=== PATIENT | female | born 1950 | race Caucasian/White ===

== ENCOUNTER 2016-09-15 18:30 | Emergency (ER) | payer MEDICARE, SELFPAY ==
[2016-09-15 18:48] VITALS: BP 167/89
[2016-09-15] MEDS ORDERED: Ondansetron 4 MG Tab.DIS PO ONE (19:11)
[2016-09-15] MEDS ORDERED: Dextrose 5%-0.9% NaCl with KCl 500 ML IV SCH (19:15)
--- NOTE | 2016-09-15 20:11 | EDM.PDOC ---
ED HPI GENERAL MEDICAL PROBLEM - General Chief Complaint: General Stated Complaint: abdominal pain Time Seen by Provider: 09/15/16 18:55 Source of Information: Reports: Patient History Limitations: Reports: No limitations - History of Present Illness INITIAL COMMENTS - FREE TEXT/NARRATIVE: This is a 66yo F here for complaints of severe abdominal pain. Patient states the pain was like the times she had gallbladder issues but she no longer has a gallbladder. Patient denies any chest pain, no sob. No fever but does complain of chills. Patient states the pain started 1 hour ago and resolved light a light switch before arriving in the ER. Patient does have a history of chronic diarrhea and did take some immodium today. Onset: sudden Duration: Minutes:, Resolved prior to arrival Location: Reports: abdomen Quality: Reports: Ache Severity: severe Improves with: Reports: None Worsens with: Reports: None Associated Symptoms: Reports: denies other symptoms - Related Data Allergies Allergy/AdvReac Type Severity Reaction Status Date / Time Penicillins Allergy Anaphylactic Verified 09/15/16 18:46 Shock Past Medical History Psychiatric History: Reports: Anxiety - Past Surgical History GI Surgical History: Reports: Cholecystectomy, Colonoscopy, Small bowel ED ROS GENERAL - Review of Systems Review Of Systems: ROS reveals no pertinent complaints other than HPI. ED EXAM, GENERAL - Physical Exam Exam: See Below Exam Limited By: No limitations General Appearance: alert, WD/WN, no apparent distress Eye Exam: bilateral eye: EOMI, PERRL Ears: normal external exam Nose: normal inspection Throat/Mouth: Normal inspection Head: atraumatic, normocephalic Neck: normal inspection, supple, non-tender Respiratory/Chest: no respiratory distress, lungs clear, normal breath sounds Cardiovascular: normal peripheral pulses, regular rate, rhythm, no edema Peripheral Pulses: 2+: dorsalis pedis (L), dorsalis pedis (R) GI/Abdominal: normal bowel sounds, soft, non tender, no organomegaly, no distention, no abnormal bruit, no mass Extremities: normal inspection Neurological: alert, oriented, CN II-XII intact Course - Vital Signs Last Recorded V/S: Last Vital Signs Temp 37.8 C 09/15/16 18:46 Pulse 107 H 09/15/16 18:46 Resp 12 09/15/16 18:46 BP 167/89 H 09/15/16 18:46 Pulse Ox 93 L 09/15/16 18:46 - Orders/Labs/Meds Orders: Active Orders 24 hr Category Date Time Status Chest Abdomen Pelvis wo Cont [CT] Stat Exams 09/15/16 18:37 Taken Dextrose 5%-0.9% NaCl with KCl [D5 NS with 20 mEq KCl] Med 09/15/16 19:15 Active 500 ml IV ASDIRECTED Medication Orders Potassium Chloride/Dextrose/Sod Cl (D5 Ns With 20 Meq Kcl) 500 mls @ 999 mls/ hr IV ASDIRECTED PANFILO Last Admin: 09/15/16 19:34 Dose: 999 mls/hr Labs: Laboratory Tests 09/15/16 09/15/16 09/15/16 Range/Units 19:00 19:00 19:00 WBC 9.9 (4.0-11.0) K/uL RBC 4.84 (3.80-5.80) M/uL Hgb 14.4 (11.5-16.5) g/dL Hct 42.0 (37.0-47.0) % MCV 87 (76-96) fL MCH 29.8 (27.0-32.0) pg MCHC 34.3 (31.0-35.0) g/dL RDW 12.8 (11.0-16.0) % Plt Count 225 (150-500) K/uL MPV 9.5 (6.0-10.0) fL Neut % (Auto) 90.0 H (45.0-70.0) % Lymph % (Auto) 4.9 L (20.0-40.0) % [place] % (Auto) 4.7 (3.0-10.0) % Eos % (Auto) 0.2 L (1.0-5.0) % Baso % (Auto) 0.2 (0.0-0.5) % Neut # 8.91 H (2.00-7.50) K/uL Lymph # 0.49 L (1.50-4.00) K/uL [place] # 0.47 (0.20-0.80) K/uL Eos # 0.02 L (0.04-0.40) K/uL Baso # 0.02 (0.02-0.10) K/uL Sodium 139 (136-145) mmol/L Potassium 4.0 (3.5-5.1) mmol/L Chloride 102 (98-107) mmol/L Carbon Dioxide 26.9 (21.0-32.0) mmol/L Anion Gap 14.1 (5.0-15.0) mmol/L BUN 20 (8-26) mg/dL Creatinine 1.05 H (0.55-1.02) mg/dL Est Cr Clr Drug Dosing TNP Estimated GFR (MDRD) 53 L (>60) MLS/MIN BUN/Creatinine Ratio 19.0 (6-25) Glucose 150 H D (74-100) mg/dL Hemoglobin A1c (4.5-6.2) % Calcium 8.9 (8.5-10.1) mg/dL Total Bilirubin 0.7 (0.0-1.0) mg/dL AST 104 H (15-37) U/L ALT 84 H (12-78) U/L Alkaline Phosphatase 90 (46-116) U/L Total Protein 7.6 (6.4-8.2) g/dL Albumin 3.9 (3.4-5.0) g/dL Globulin 3.7 (2.2-4.2) g/dL Albumin/Globulin Ratio 1.1 (0.8-2.0) Lipase (73-393) U/L TSH, Ultra Sensitive 0.177 L D (0.358-3.740) uIU/mL 09/15/16 09/15/16 Range/Units 19:00 19:00 WBC (4.0-11.0) K/uL RBC (3.80-5.80) M/uL Hgb (11.5-16.5) g/dL Hct (37.0-47.0) % MCV (76-96) fL MCH (27.0-32.0) pg MCHC (31.0-35.0) g/dL RDW (11.0-16.0) % Plt Count (150-500) K/uL MPV (6.0-10.0) fL Neut % (Auto) (45.0-70.0) % Lymph % (Auto) (20.0-40.0) % [place] % (Auto) (3.0-10.0) % Eos % (Auto) (1.0-5.0) % Baso % (Auto) (0.0-0.5) % Neut # (2.00-7.50) K/uL Lymph # (1.50-4.00) K/uL [place] # (0.20-0.80) K/uL Eos # (0.04-0.40) K/uL Baso # (0.02-0.10) K/uL Sodium (136-145) mmol/L Potassium (3.5-5.1) mmol/L Chloride (98-107) mmol/L Carbon Dioxide (21.0-32.0) mmol/L Anion Gap (5.0-15.0) mmol/L BUN (8-26) mg/dL Creatinine (0.55-1.02) mg/dL Est Cr Clr Drug Dosing Estimated GFR (MDRD) (>60) MLS/MIN BUN/Creatinine Ratio (6-25) Glucose (74-100) mg/dL Hemoglobin A1c 5.2 (4.5-6.2) % Calcium (8.5-10.1) mg/dL Total Bilirubin (0.0-1.0) mg/dL AST (15-37) U/L ALT (12-78) U/L Alkaline Phosphatase (46-116) U/L Total Protein (6.4-8.2) g/dL Albumin (3.4-5.0) g/dL Globulin (2.2-4.2) g/dL Albumin/Globulin Ratio (0.8-2.0) Lipase 99 (73-393) U/L TSH, Ultra Sensitive (0.358-3.740) uIU/mL Meds: Medications Generic Name Dose Route Start Last Admin Trade Name Freq PRN Reason Stop Dose Admin Potassium Chloride/Dextrose/Sod Cl 500 mls @ 999 mls/hr 09/15/16 19:15 19:34 D5 Ns With 20 Meq Kcl IV 999 mls/hr ASDIRECTED PANFILO Administration Discontinued Medications Generic Name Dose Route Start Last Admin Trade Name Freq PRN Reason Stop Dose Admin Ondansetron HCl 4 mg 09/15/16 19:11 09/15/16 19:34 Zofran Odt PO 09/15/16 19:12 4 mg ONETIME ONE Administration Departure - Departure Time of Disposition: 20:40 Disposition: Home, Self-Care 01 Condition: good Clinical Impression: Biliary pain, Colitis Instructions: Biliary Colic, Colitis Referrals: PCP,None [Primary Care Provider] - Forms: ED Department Discharge Additional Instructions: Follow-up as needed in the clinic or the ER. - Problem List Review Problem List Initiated/Reviewed/Updated: Yes - My Orders Last 24 Hours: My Active Orders 09/15/16 18:37 Chest Abdomen Pelvis wo Cont [CT] Stat 09/15/16 19:15 Dextrose 5%-0.9% NaCl with KCl [D5 NS with 20 mEq KCl] 500 ml IV ASDIRECTED - Assessment/Plan Last 24 Hours: My Active Orders 09/15/16 18:37 Chest Abdomen Pelvis wo Cont [CT] Stat 09/15/16 19:15 Dextrose 5%-0.9% NaCl with KCl [D5 NS with 20 mEq KCl] 500 ml IV ASDIRECTED Plan: Discussed with patient in length regarding biliary concerns, colitis and treatments. Discussed likely biliary stone or sludge due to the dramatic increase in pain and dramatic cessation of pain from likely clearance of the biliary duct. Discussed colitis and patient states she has had that for a long time and was treated in the past but refuses to continue taking colitis meds. Patient states she will continue to monitor symptoms closely and return to ER or clinic as discussed. Patient understands risks of not following up. Counseled on close monitoring of abdominal pain, BM and fluids.
--- NOTE | 2016-09-18 07:52 | CT ---
DATE OF SERVICE: 09/15/16 CLINICAL DATA: abdominal pain UNENHANCED CHEST CT: Multislice acquisition through the chest without IV contrast was performed. No priors. There are minimal atelectatic changes involving both lung bases. There is a linear density in the left lung base consistent with linear atelectasis or fibrosis. The lung bases are otherwise clear. There is a small hiatal hernia. No pleural effusions. No pneumothorax. No aortic aneurysm or dissection. No hilar or mediastinal adenopathy. The heart size is normal. No pericardial effusion. There are coronary artery calcifications. IMPRESSION: No acute abnormalities. UNENHANCED ABDOMEN AND PELVIC CT: Multislice acquisition through the abdomen and pelvis without IV or oral contrast was performed. No priors. There is a small hiatal hernia. The unenhanced liver appears normal. The gallbladder is absent and there are surgical clips in the gallbladder fossa. The spleen appears normal. The pancreas appears normal. The right and left adrenals appear normal. There is atrophy of the left kidney with renal cortical scarring on the left. The right kidney appears normal. No nephrocalcinosis or nephrolithiasis. No hydronephrosis or hydroureter. The bladder is partially fluid-filled and appears normal. There is a 3.5 cm partially calcified contour-deforming mass within the posterior uterine segment consistent in appearance with a uterine leiomyoma. The appendix is not dilated. No evidence of appendicitis. There is apparent mild mural thickening throughout the transverse, descending, and sigmoid colon. This is probably related to nondistension. Colitis should be considered. No free air. No free fluid. No dilated loops of bowel. No adenopathy. No aortic aneurysm. There is a small umbilical hernia containing fat. [id number] [facility]
== END 2016-09-15 19:15 | disposition home or self-care (01) ==
LOC: LB.ED 18:30
DX: K52.9 Noninfective gastroenteritis and colitis, unspecified (principal); K83.9 Disease of biliary tract, unspecified; F41.9 Anxiety disorder, unspecified; Z90.49 Acquired absence of other specified parts of digestive tract; Z88.0 Allergy status to penicillin
CPT/HCPCS: 36415; 71250; 74176; 80053; 83036; 83690; 84443; 85025; 99283; 99284; A0425; A0429; A9270; J3480

== ENCOUNTER → 2019-07-01 | Outpatient (CLI) | payer MEDICARE, MEDICAID | LOC: LB.CLINIC 11:58 | PROVIDERS: ATTEND Family Medicine | DX: R31.9 Hematuria, unspecified (principal) | CPT/HCPCS: 81001 ==

== ENCOUNTER 2020-06-18 18:25 | Emergency (ER) | payer MEDICARE, OTHER ==
[2020-06-18] MEDS: Sodium Chloride 0.9% 1,000 ML IV SCH (19:28)
[2020-06-18] MEDS: Ketorolac 30 MG/ML SDV IVPUSH ONE (19:33)
[2020-06-18] MEDS ORDERED: Sulfamethoxazole/Trimethoprim 800-160 MG Tab ONE (20:00)
[2020-06-18] MEDS ORDERED: Phenazopyridine 100 MG Tab ONE (20:00)
--- NOTE | 2020-06-18 20:18 | EDM.PDOC ---
ED HPI GENERAL MEDICAL PROBLEM - General Chief Complaint: Headache Stated Complaint: headache/fever Time Seen by Provider: 06/18/20 18:30 Source of Information: Reports: Patient History Limitations: Reports: No Limitations - History of Present Illness INITIAL COMMENTS - FREE TEXT/NARRATIVE: Patient is a 70 y/o female who presents with fever and lower abdominal pain x 2 days. she had called last night and described to nurse constipation symptoms and was advised to increase fiber and take GasX. Patient has a bowel movement this morning and felt a lot better, but the pain came back after drinking diet 7Up. she slept most of the day and symptoms worsened. No nausea, vomiting, diarrhea, no melena, no bloody stools, no dysuria, no back pain, no exposure to anyone testing positive for COVID. - Related Data Allergies Allergy/AdvReac Type Severity Reaction Status Date / Time Penicillins Allergy Anaphylactic Verified 09/15/16 18:46 Shock Past Medical History Psychiatric History: Reports: Anxiety - Past Surgical History GI Surgical History: Reports: Cholecystectomy, Colonoscopy, Small Bowel ED ROS GENERAL - Review of Systems Review Of Systems: See Below Constitutional: Reports: Fever, Fatigue HEENT: Reports: No Symptoms Respiratory: Reports: No Symptoms Cardiovascular: Reports: No Symptoms Endocrine: Reports: No Symptoms GI/Abdominal: Reports: Abdominal Pain : Reports: No Symptoms Musculoskeletal: Reports: No Symptoms Skin: Reports: No Symptoms Neurological: Reports: No Symptoms ED EXAM, RENAL/ - Physical Exam Exam: See Below Exam Limited By: No Limitations General Appearance: Alert, No Apparent Distress Head: Atraumatic, Normocephalic Neck: Normal Inspection, Supple Respiratory/Chest: No Respiratory Distress, Lungs Clear, Normal Breath Sounds, No Accessory Muscle Use, Chest Non-Tender Cardiovascular: Normal Peripheral Pulses, Regular Rate, Rhythm, No Edema, No Murmur GI/Abdominal: Normal Bowel Sounds, Soft, Non-Tender, No Distention Extremities: Normal Inspection, Normal Range of Motion Neurological: Alert, Oriented Skin Exam: Warm, Dry, Other (skin appears sunken in and dry) Lymphatic: No Adenopathy Course - Vital Signs Text/Narrative:: labs revealed UTI. 1 L NS bolus and toradol given. Gave pyridium and bactrim in the ED and gave scripts for bactrim DS PO BID x 5 days. urine culture ordered. - Orders/Labs/Meds Orders: Active Orders 24 hr Category Date Time Status CULTURE URINE [RM] Stat Lab 06/18/20 19:25 Received Labs: Laboratory Tests 06/18/20 06/18/20 06/18/20 Range/Units 18:32 19:25 19:25 WBC 16.5 H D (4.0-11.0) K/uL RBC 4.75 (3.80-5.80) M/uL Hgb 14.6 (11.5-16.5) g/dL Hct 43.2 (37.0-47.0) % MCV 91 (76-96) fL MCH 30.7 (27.0-32.0) pg MCHC 33.8 (31.0-35.0) g/dL RDW 12.9 (11.0-16.0) % Plt Count 197 (150-500) K/uL MPV 9.3 (6.0-10.0) fL Neut % (Auto) 80.9 H (45.0-70.0) % Lymph % (Auto) 9.4 L (20.0-40.0) % [place] % (Auto) 9.4 (3.0-10.0) % Eos % (Auto) 0.1 L (1.0-5.0) % Baso % (Auto) 0.2 (0.0-0.5) % Neut # (Auto) 13.36 H (2.00-7.50) K/uL Lymph # (Auto) 1.56 (1.50-4.00) K/uL [place] # (Auto) 1.56 H (0.20-0.80) K/uL Eos # (Auto) 0.02 L (0.04-0.40) K/uL Baso # (Auto) 0.04 (0.02-0.10) K/uL Sodium (136-145) mmol/L Potassium (3.5-5.1) mmol/L Chloride (98-107) mmol/L Carbon Dioxide (21.0-32.0) mmol/L Anion Gap (5.0-15.0) mmol/L BUN (8-26) mg/dL Creatinine (0.55-1.02) mg/dL Est Cr Clr Drug Dosing Estimated GFR (MDRD) (>60) MLS/MIN BUN/Creatinine Ratio (6-25) Glucose (74-100) mg/dL Calcium (8.5-10.1) mg/dL Total Bilirubin (0.0-1.0) mg/dL AST (15-37) U/L ALT (12-78) U/L Alkaline Phosphatase (46-116) U/L Total Protein (6.4-8.2) g/dL Albumin (3.4-5.0) g/dL Globulin (2.2-4.2) g/dL Albumin/Globulin Ratio (0.8-2.0) Urine Color Yellow Urine Appearance Slightly cloudy (CLEAR) Urine pH 5.5 (5.0-8.0) Ur Specific [place] >= 1.030 (1.003-1.030) Urine Protein >=300 H (NEGATIVE) mg/dL Urine Glucose (UA) Negative (NEGATIVE) mg/dL Urine Ketones 40 H (NEGATIVE) mg/dL Urine Occult Blood Moderate H (NEGATIVE) Urine Nitrite Negative (NEGATIVE) Urine Bilirubin Small H (NEGATIVE) Urine Urobilinogen 0.2 (0.2-1.0) E.U./dL Ur Leukocyte Esterase Small H (NEGATIVE) Urine RBC 5-10 H /HPF Urine WBC 20-30 H /HPF Ur Squamous Epith Cells Many /HPF Urine Bacteria Few /HPF Urine Mucus Moderate /HPF SARS CoV-2 RNA Rapid MAHIN Negative 06/18/20 Range/Units 19:25 WBC (4.0-11.0) K/uL RBC (3.80-5.80) M/uL Hgb (11.5-16.5) g/dL Hct (37.0-47.0) % MCV (76-96) fL MCH (27.0-32.0) pg MCHC (31.0-35.0) g/dL RDW (11.0-16.0) % Plt Count (150-500) K/uL MPV (6.0-10.0) fL Neut % (Auto) (45.0-70.0) % Lymph % (Auto) (20.0-40.0) % [place] % (Auto) (3.0-10.0) % Eos % (Auto) (1.0-5.0) % Baso % (Auto) (0.0-0.5) % Neut # (Auto) (2.00-7.50) K/uL Lymph # (Auto) (1.50-4.00) K/uL [place] # (Auto) (0.20-0.80) K/uL Eos # (Auto) (0.04-0.40) K/uL Baso # (Auto) (0.02-0.10) K/uL Sodium 134 L (136-145) mmol/L Potassium 3.7 (3.5-5.1) mmol/L Chloride 97 L (98-107) mmol/L Carbon Dioxide 27.1 (21.0-32.0) mmol/L Anion Gap 13.6 (5.0-15.0) mmol/L BUN 10 D (8-26) mg/dL Creatinine 0.86 (0.55-1.02) mg/dL Est Cr Clr Drug Dosing TNP Estimated GFR (MDRD) > 60 (>60) MLS/MIN BUN/Creatinine Ratio 11.6 (6-25) Glucose 174 H (74-100) mg/dL Calcium 9.2 (8.5-10.1) mg/dL Total Bilirubin 0.9 (0.0-1.0) mg/dL AST 19 (15-37) U/L ALT 34 (12-78) U/L Alkaline Phosphatase 73 (46-116) U/L Total Protein 8.0 (6.4-8.2) g/dL Albumin 3.5 (3.4-5.0) g/dL Globulin 4.5 H (2.2-4.2) g/dL Albumin/Globulin Ratio 0.8 (0.8-2.0) Urine Color Urine Appearance (CLEAR) Urine pH (5.0-8.0) Ur Specific [place] (1.003-1.030) Urine Protein (NEGATIVE) mg/dL Urine Glucose (UA) (NEGATIVE) mg/dL Urine Ketones (NEGATIVE) mg/dL Urine Occult Blood (NEGATIVE) Urine Nitrite (NEGATIVE) Urine Bilirubin (NEGATIVE) Urine Urobilinogen (0.2-1.0) E.U./dL Ur Leukocyte Esterase (NEGATIVE) Urine RBC /HPF Urine WBC /HPF Ur Squamous Epith Cells /HPF Urine Bacteria /HPF Urine Mucus /HPF SARS CoV-2 RNA Rapid MAHIN Meds: Medications Discontinued Medications Generic Name Dose Route Start Last Admin Trade Name Freq PRN Reason Stop Dose Admin Ketorolac Tromethamine 30 mg 06/18/20 19:18 Toradol IVPUSH 06/18/20 19:19 ONETIME ONE Phenazopyridine HCl 100 mg 06/18/20 19:56 Pyridium PO 06/18/20 19:57 BID ONE Trimethoprim/Sulfamethoxazole 1 tab 06/18/20 19:56 Septra Ds PO 06/18/20 19:57 ONETIME ONE Departure - Departure Time of Disposition: 20:30 Disposition: Home, Self-Care 01 Condition: Good Clinical Impression: UTI (urinary tract infection) Qualifiers: Urinary tract infection type: acute cystitis Hematuria presence: with hematuria Qualified Code(s): N30.01 - Acute cystitis with hematuria - Discharge Information *PRESCRIPTION DRUG MONITORING PROGRAM REVIEWED*: Not Applicable *COPY OF PRESCRIPTION DRUG MONITORING REPORT IN PATIENT [facility]: Not Applicable Referrals: Evelyn Laguerre PA-C [Primary Care Provider] - - My Orders Last 24 Hours: My Active Orders 06/18/20 19:25 CULTURE URINE [RM] Stat - Assessment/Plan Last 24 Hours: My Active Orders 06/18/20 19:25 CULTURE URINE [RM] Stat
[2020-06-18] MEDS: Sulfamethoxazole/Trimethoprim 800-160 MG Tab PO ONE (23:03)
[2020-06-18] MEDS: Phenazopyridine 100 MG Tab PO ONE (23:03)
== END 2020-06-18 20:35 | disposition home or self-care (01) ==
LOC: LB.ED 18:25
DX: N30.01 Acute cystitis with hematuria (principal); Z20.828 Contact with and (suspected) exposure to other viral communicable diseases; Z88.0 Allergy status to penicillin
CPT/HCPCS: 36415; 80053; 81001; 85025; 87086; 96374; 99284-25; A9270-GY; J1885; J7030; U0002

== ENCOUNTER 2022-04-18 11:35 | Emergency (ER) | payer MEDICARE, MEDICAID | END 2022-04-18 13:12 | LOC: LB.ED 11:35 | DX: M25.462 Effusion, left knee (principal); I10 Essential (primary) hypertension; M19.90 Unspecified osteoarthritis, unspecified site | CPT/HCPCS: 99283 ==

== ENCOUNTER 2024-12-19 09:03 | Inpatient (IN) | payer MEDICARE, OTHER ==
[2024-12-19] MEDS: Albuterol/Ipratropium 3.0-0.5 MG/3 ML Neb Soln NEB ONE (09:03)
[2024-12-19] MEDS: Budesonide 0.5 MG/2 ML Neb Susp NEB ONE (09:13)
[2024-12-19] MEDS: methylPREDNISolone Sodium Succinate 125 MG/2 ML SDV IVPUSH ONE (09:15)
[2024-12-19 09:20] LABS: BASOPHILS ABSOLUTE AUTO 0.05 K/uL (0.02-0.10); BASOPHILS PERCENT AUTO 0.6 % (0.0-0.5); EOSINOPHILS ABSOLUTE AUTO 0.31 K/uL (0.04-0.40); EOSINOPHILS PERCENT AUTO 3.6 % (1.0-5.0); HEMATOCRIT 44.3 % (37.0-47.0); HEMOGLOBIN 14.6 g/dL (11.5-16.5); LYMPHOCYTES ABSOLUTE AUTO 1.64 K/uL (1.50-4.00); MEAN CORPUSCULAR HEMOGLOBIN 29.1 pg (27.0-32.0); MEAN CORPUSCULAR VOLUME 88 fL (76-96); MEAN PLATELET VOLUME 9.2 fL (6.0-10.0); MONOCYTES ABSOLUTE AUTO 1.08 K/uL (0.20-0.80); MONOCYTES PERCENT AUTO 12.5 % (3.0-10.0); NEUTROPHILS ABSOLUTE AUTO 5.54 K/uL (2.00-7.50); NEUTROPHILS PERCENT AUTO 64.3 % (45.0-70.0); PLATELET COUNT,PLT 423 K/uL (150-500); RED BLOOD CELL COUNT 5.01 M/uL (3.80-5.80); RED CELL DISTRIBUTION WIDTH 14.5 % (11.0-16.0); WHITE BLOOD CELL COUNT,WBC 8.6 K/uL (4.0-11.0)
[2024-12-19 09:23] LABS: BASE EXCESS VENOUS 0.6 mm/L (-2-3); BICARBONATE,VENOUS 26.1 mmol/L (23.0-28.0); PH,VENOUS 7.35 (7.31-7.41)
[2024-12-19] MEDS ORDERED: Sodium Chloride 0.9% 10 ML Syringe FLUSH PRN (09:43)
[2024-12-19 09:45] LABS: A/G RATIO 0.6 (0.8-2.0); ALBUMIN 2.8 g/dL (3.4-5.0); BILIRUBIN TOTAL 0.3 mg/dL (0.0-1.0); BUN/CREATININE RATIO 11.1 (6-25); CALCIUM 9.5 mg/dL (8.5-10.1); CARBON DIOXIDE,CO2 25.6 mmol/L (21.0-32.0); CREATININE 1.08 mg/dL (0.55-1.02); EST CRCL DRUG DOSING (CG) 43.43 mL/min; POTASSIUM,K 3.6 mmol/L (3.5-5.1); PROTEIN TOTAL,TP 7.6 g/dL (6.4-8.2)
[2024-12-19] MEDS: Losartan 50 MG Tab PO ONE (10:11)
[2024-12-19] MEDS: Heparin Sodium 5,000 Units/ML Vial IVPUSH ONE ×2 (10:36→19:00)
[2024-12-19] MEDS: Sodium Chloride 0.9% 1,000 ML IV SCH (10:53)
[2024-12-19] MEDS: Sodium Chloride 0.9% 50 ML SDV FLUSH ONE (10:56)
[2024-12-19] MEDS: Iopamidol 755 Mg/ML 100 ML Bottle IV SCH (10:56)
[2024-12-19 11:08] LABS: INR 1.1 (1.0-3.5)
[2024-12-19 11:10] LABS: PROTHROMBIN TIME 11.5 sec (9.0-11.5)
[2024-12-19] MEDS: Heparin Sodium/D5W 25,000 UNITS/500 ML BAG IV SCH (11:12)
[2024-12-19] MEDS: LORazepam 2 MG/ML SDV IVPUSH ONE (11:22)
[2024-12-19] MEDS: Ondansetron 4 MG/2 ML SDV IVPUSH ONE (12:40)
[2024-12-19] MEDS: Morphine 4 MG/ML VIAL IVPUSH ONE (12:40)
[2024-12-19] MEDS: Cyclobenzaprine 5 MG Tab PO SCH (13:58)
[2024-12-19] MEDS: Sertraline 100 MG Tab PO SCH (14:45)
[2024-12-19] MEDS: Acetaminophen/HYDROcodone 325-5 MG Tab PO PRN (14:48)
[2024-12-19] MEDS: Albuterol 0.083% 2.5 MG/3 ML Neb Soln NEB SCH (16:48)
[2024-12-20] MEDS: Levothyroxine 150 MCG Tab PO SCH (07:07)
[2024-12-20 07:37] LABS: HEMATOCRIT 40.3 % (37.0-47.0); HEMOGLOBIN 13.1 g/dL (11.5-16.5); MEAN CORPUSCULAR HEMOGLOBIN 28.6 pg (27.0-32.0); MEAN CORPUSCULAR HGB CONC 32.5 g/dL (31.0-35.0); MEAN PLATELET VOLUME 9.4 fL (6.0-10.0); RED BLOOD CELL COUNT 4.58 M/uL (3.80-5.80); RED CELL DISTRIBUTION WIDTH 14.4 % (11.0-16.0); WHITE BLOOD CELL COUNT,WBC 12.5 K/uL (4.0-11.0)
[2024-12-20 07:50] LABS: BUN/CREATININE RATIO 12.7 (6-25); CREATININE 1.02 mg/dL (0.55-1.02); EST CRCL DRUG DOSING (CG) 45.98 mL/min
[2024-12-20 08:13] LABS: ANION GAP 11.5 mmol/L (5.0-15.0); CARBON DIOXIDE,CO2 29.3 mmol/L (21.0-32.0); POTASSIUM,K 3.8 mmol/L (3.5-5.1)
[2024-12-20] MEDS: Losartan 50 MG Tab PO SCH (08:15)
[2024-12-20] MEDS: Lactobacillus Acidophilus/Lactobacillus Sporogenes (Probiotic) Tab PO SCH (14:45)
[2024-12-20] MEDS: Heparin Sodium 5,000 Units/ML Vial IVPUSH ONE (15:51)
[2024-12-20] MEDS: Levofloxacin/Dextrose 5%-Water 500 MG in Levofloxacin/Dextrose 5%-Water 100 ML IV SCH (17:24)
[2024-12-20] MEDS: LORazepam 2 MG/ML SDV ONE (22:36)
[2024-12-20] MEDS: LORazepam 2 MG/ML SDV IVPUSH ONE ×2 (22:37→23:08)
[2024-12-21 01:06] VITALS: BP 138/84; PULSE 94
== END 2024-12-20 23:26 | DRG 186 ==
LOC: LB.ED 09:03 → LB.MS 12:24 → UNDOADMIN 12:24 → UNDODISIN 12-20 23:26
PROVIDERS: ADMIT Surgery; ATTEND Surgery
PROC: 0W9B3ZZ Drainage of Left Pleural Cavity, Percutaneous Approach (ICD-10-PCS; principal; 2024-12-19)
PROC: 5A0935A Assistance with Respiratory Ventilation, Less than 24 Consecutive Hours, High Flow/Velocity Cannula (ICD-10-PCS; principal; 2024-12-19)
DX: J90 Pleural effusion, not elsewhere classified (principal); I26.92 Saddle embolus of pulmonary artery without acute cor pulmonale; J45.902 Unspecified asthma with status asthmaticus; R18.0 Malignant ascites; Z66 Do not resuscitate; H54.7 Unspecified visual loss; I10 Essential (primary) hypertension; Z79.890 Hormone replacement therapy; R09.02 Hypoxemia; R19.00 Intra-abdominal and pelvic swelling, mass and lump, unspecified site; K58.9 Irritable bowel syndrome, unspecified; F41.9 Anxiety disorder, unspecified; E03.9 Hypothyroidism, unspecified; Z98.890 Other specified postprocedural states; Z90.49 Acquired absence of other specified parts of digestive tract; Z87.891 Personal history of nicotine dependence; Z79.899 Other long term (current) drug therapy; Z79.82 Long term (current) use of aspirin; Z88.0 Allergy status to penicillin; Z99.81 Dependence on supplemental oxygen
CPT/HCPCS: 36415; 71045; 71250; 71275; 74176; 80048; 80053; 82803; 83880; 85025; 85027; 85379; 85610; 85730; 87015; 87070; 87075; 87102; 87116; 87205; 87206; 93005; 94640; 96361; 96374; 96375; 99223; 99239; 99285-25; A0425; A0428; A9270-GY; J1644; J1956; J2060; J2270; J2405; J2919; J3490; J7030; Q9967

== ENCOUNTER 2025-01-03 16:09 | Emergency (ER) | payer MEDICARE, OTHER ==
[2025-01-03] MEDS ORDERED: Sodium Chloride 0.9% 10 ML Syringe FLUSH PRN (16:39)
[2025-01-03] MEDS: Sodium Chloride 0.9% 1,000 ML IV ONE (16:48)
[2025-01-03 17:00] LABS: BASOPHILS ABSOLUTE AUTO 0.06 K/uL (0.02-0.10); BASOPHILS PERCENT AUTO 0.7 % (0.0-0.5); EOSINOPHILS ABSOLUTE AUTO 0.09 K/uL (0.04-0.40); HEMATOCRIT 37.5 % (37.0-47.0); HEMOGLOBIN 12.3 g/dL (11.5-16.5); LYMPHOCYTES ABSOLUTE AUTO 0.56 K/uL (1.50-4.00); LYMPHOCYTES PERCENT AUTO 6.1 % (20.0-40.0); MEAN CORPUSCULAR HEMOGLOBIN 28.5 pg (27.0-32.0); MEAN CORPUSCULAR HGB CONC 32.8 g/dL (31.0-35.0); MEAN CORPUSCULAR VOLUME 87 fL (76-96); MEAN PLATELET VOLUME 8.9 fL (6.0-10.0); MONOCYTES ABSOLUTE AUTO 0.67 K/uL (0.20-0.80); MONOCYTES PERCENT AUTO 7.3 % (3.0-10.0); NEUTROPHILS ABSOLUTE AUTO 7.83 K/uL (2.00-7.50); NEUTROPHILS PERCENT AUTO 84.9 % (45.0-70.0); PLATELET COUNT,PLT 424 K/uL (150-500); RED BLOOD CELL COUNT 4.32 M/uL (3.80-5.80); RED CELL DISTRIBUTION WIDTH 14.6 % (11.0-16.0); WHITE BLOOD CELL COUNT,WBC 9.2 K/uL (4.0-11.0)
[2025-01-03 17:13] LABS: ANION GAP 15.6 mmol/L (5.0-15.0); BUN/CREATININE RATIO 7.4 (6-25); CALCIUM 8.9 mg/dL (8.5-10.1); CARBON DIOXIDE,CO2 23.5 mmol/L (21.0-32.0); CREATININE 1.22 mg/dL (0.55-1.02); EST CRCL DRUG DOSING (CG) 38.45 mL/min; POTASSIUM,K 4.1 mmol/L (3.5-5.1)
[2025-01-03 18:46] LABS: APPEARANCE,URINE SLIGHTLY CLOUDY (CLEAR); BILIRUBIN,URINE NEGATIVE (NEGATIVE); COLOR,URINE YELLOW; GLUCOSE,URINE NEGATIVE (NEGATIVE); KETONES,URINE 15 mg/dL (NEGATIVE); LEUKOCYTE ESTERASE,URINE SMALL (NEGATIVE); NITRITE,URINE NEGATIVE (NEGATIVE); OCCULT BLOOD,URINE TRACE-INTACT (NEGATIVE); PROTEIN,URINE NEGATIVE (NEGATIVE); UROBILINOGEN,URINE 0.2 E.U./dL (0.2-1.0)
[2025-01-03 18:55] LABS: RBC,URINE 0-5 /HPF; SQUAMOUS EPITHELIAL CELLS,UR OCCASIONAL /HPF; WBC,URINE 0-5 /HPF
== END 2025-01-03 19:08 | disposition home or self-care (01) ==
LOC: LB.ED 16:09
DX: K58.0 Irritable bowel syndrome with diarrhea (principal); E86.0 Dehydration; E87.1 Hypo-osmolality and hyponatremia; C56.9 Malignant neoplasm of unspecified ovary; I10 Essential (primary) hypertension; J45.909 Unspecified asthma, uncomplicated; E03.9 Hypothyroidism, unspecified; Z90.49 Acquired absence of other specified parts of digestive tract; Z88.0 Allergy status to penicillin; Z79.01 Long term (current) use of anticoagulants; Z79.890 Hormone replacement therapy; Z79.899 Other long term (current) drug therapy
CPT/HCPCS: 36415; 71045; 74019; 80048; 81001; 85025; 87086; 96360; 96361; 99284-25; J7030

== ENCOUNTER 2025-01-09 20:13 | Emergency (ER) | payer MEDICARE, OTHER ==
[2025-01-09] MEDS: GI Cocktail Oral Solution 30 ML PO ONE (20:42)
[2025-01-09 21:23] LABS: BASOPHILS ABSOLUTE AUTO 0.04 K/uL (0.02-0.10); BASOPHILS PERCENT AUTO 0.4 % (0.0-0.5); EOSINOPHILS ABSOLUTE AUTO 0.15 K/uL (0.04-0.40); EOSINOPHILS PERCENT AUTO 1.5 % (1.0-5.0); HEMATOCRIT 38.1 % (37.0-47.0); HEMOGLOBIN 12.3 g/dL (11.5-16.5); LYMPHOCYTES PERCENT AUTO 9.3 % (20.0-40.0); MEAN CORPUSCULAR HEMOGLOBIN 28.3 pg (27.0-32.0); MEAN CORPUSCULAR HGB CONC 32.3 g/dL (31.0-35.0); MEAN CORPUSCULAR VOLUME 88 fL (76-96); MEAN PLATELET VOLUME 9.4 fL (6.0-10.0); MONOCYTES ABSOLUTE AUTO 0.67 K/uL (0.20-0.80); MONOCYTES PERCENT AUTO 6.9 % (3.0-10.0); NEUTROPHILS ABSOLUTE AUTO 7.96 K/uL (2.00-7.50); NEUTROPHILS PERCENT AUTO 81.9 % (45.0-70.0); PLATELET COUNT,PLT 398 K/uL (150-500); RED BLOOD CELL COUNT 4.35 M/uL (3.80-5.80); RED CELL DISTRIBUTION WIDTH 14.7 % (11.0-16.0); WHITE BLOOD CELL COUNT,WBC 9.7 K/uL (4.0-11.0)
[2025-01-09 22:21] LABS: A/G RATIO 0.5 (0.8-2.0); ALBUMIN 2.5 g/dL (3.4-5.0); ANION GAP 15.3 mmol/L (5.0-15.0); BILIRUBIN TOTAL 0.6 mg/dL (0.0-1.0); BUN/CREATININE RATIO 14.3 (6-25); CALCIUM 9.2 mg/dL (8.5-10.1); CARBON DIOXIDE,CO2 24.7 mmol/L (21.0-32.0); CREATININE 0.98 mg/dL (0.55-1.02); EST CRCL DRUG DOSING (CG) 47.86 mL/min; PROTEIN TOTAL,TP 7.2 g/dL (6.4-8.2)
== END 2025-01-09 22:35 | disposition home or self-care (01) ==
LOC: LB.ED 20:13
DX: K21.9 Gastro-esophageal reflux disease without esophagitis (principal); Z79.01 Long term (current) use of anticoagulants; Z79.899 Other long term (current) drug therapy; Z90.49 Acquired absence of other specified parts of digestive tract
CPT/HCPCS: 36415; 71045; 80053; 85025; 99283; 99285; A9270-GY

== ENCOUNTER 2025-01-31 21:36 | Emergency (ER) | payer MEDICARE, OTHER ==
[2025-01-31] MEDS ORDERED: Sodium Chloride 0.9% 10 ML Syringe FLUSH PRN (22:14)
[2025-01-31 22:57] LABS: BASOPHILS ABSOLUTE AUTO 0.04 K/uL (0.02-0.10); BASOPHILS PERCENT AUTO 0.7 % (0.0-0.5); EOSINOPHILS ABSOLUTE AUTO 0.28 K/uL (0.04-0.40); EOSINOPHILS PERCENT AUTO 4.9 % (1.0-5.0); LYMPHOCYTES ABSOLUTE AUTO 1.46 K/uL (1.50-4.00); LYMPHOCYTES PERCENT AUTO 25.5 % (20.0-40.0); MEAN PLATELET VOLUME 9.4 fL (6.0-10.0); MONOCYTES ABSOLUTE AUTO 0.77 K/uL (0.20-0.80); MONOCYTES PERCENT AUTO 13.5 % (3.0-10.0); NEUTROPHILS ABSOLUTE AUTO 3.17 K/uL (2.00-7.50); NEUTROPHILS PERCENT AUTO 55.4 % (45.0-70.0); PLATELET COUNT,PLT 252 K/uL (150-500); RED BLOOD CELL COUNT 3.50 M/uL (3.80-5.80); RED CELL DISTRIBUTION WIDTH 15.3 % (11.0-16.0); WHITE BLOOD CELL COUNT,WBC 5.7 K/uL (4.0-11.0)
[2025-01-31 23:05] LABS: A/G RATIO 0.5 (0.8-2.0); ALANINE AMINOTRANSFERASE,ALT 17 U/L (12-78); ASPARTATE AMNIOTRANSFERASE,AST 21 U/L (15-37); BILIRUBIN TOTAL 0.2 mg/dL (0.0-1.0); BLOOD UREA NITROGEN,BUN 11 mg/dL (8-26); CARBON DIOXIDE,CO2 27.3 mmol/L (21.0-32.0); CHLORIDE,CL 105 mmol/L (98-107); CREATININE 0.98 mg/dL (0.55-1.02); ESTIMATED GFR 61 mL/min (>60); GLUCOSE RANDOM 119 mg/dL (74-100); POTASSIUM,K 4.0 mmol/L (3.5-5.1); PROTEIN TOTAL,TP 6.3 g/dL (6.4-8.2); SODIUM,NA 140 mmol/L (136-145)
== END 2025-02-01 01:22 | disposition home or self-care (01) ==
LOC: LB.ED 21:36
DX: C56.9 Malignant neoplasm of unspecified ovary (principal); I10 Essential (primary) hypertension; R18.0 Malignant ascites; K21.9 Gastro-esophageal reflux disease without esophagitis; Z88.0 Allergy status to penicillin; Z88.8 Allergy status to other drugs, medicaments and biological substances; Z79.890 Hormone replacement therapy; Z90.49 Acquired absence of other specified parts of digestive tract
CPT/HCPCS: 36415; 49083; 71045; 80053; 83605; 85025; 87040; 96365; 99283-25; 99284; P9047

== ENCOUNTER 2025-02-28 16:31 | Emergency (ER) | payer MEDICARE, OTHER | END 2025-02-28 19:00 | disposition home or self-care (01) | LOC: LB.ED 16:31 | DX: C54.1 Malignant neoplasm of endometrium (principal); I10 Essential (primary) hypertension; E03.9 Hypothyroidism, unspecified; Z88.0 Allergy status to penicillin; Z79.890 Hormone replacement therapy; Z79.899 Other long term (current) drug therapy; Z90.49 Acquired absence of other specified parts of digestive tract | CPT/HCPCS: 96372; 99283; J2270; 99284 ==

== ENCOUNTER 2025-03-02 00:32 | Emergency (ER) | payer MEDICARE, OTHER ==
[2025-03-02] MEDS: Ondansetron 4 MG Tab.DIS PO ONE (01:14)
== END 2025-03-02 02:22 | disposition home or self-care (01) ==
LOC: LB.ED 00:32
DX: R10.30 Lower abdominal pain, unspecified (principal); T45.1X5A Adverse effect of antineoplastic and immunosuppressive drugs, initial encounter; I10 Essential (primary) hypertension; J45.909 Unspecified asthma, uncomplicated; E03.9 Hypothyroidism, unspecified; K21.9 Gastro-esophageal reflux disease without esophagitis; Z79.890 Hormone replacement therapy; Z88.0 Allergy status to penicillin; Z88.8 Allergy status to other drugs, medicaments and biological substances; Z90.49 Acquired absence of other specified parts of digestive tract
CPT/HCPCS: 96372; 99283; J2270; Q0162; 99284

== ENCOUNTER 2025-03-03 11:19 | Emergency (ER) | payer MEDICARE, OTHER | END 2025-03-03 13:38 | disposition home or self-care (01) | LOC: LB.ED 11:19 | DX: R51.9 Headache, unspecified (principal); T45.1X5A Adverse effect of antineoplastic and immunosuppressive drugs, initial encounter; I10 Essential (primary) hypertension; J45.909 Unspecified asthma, uncomplicated; K21.9 Gastro-esophageal reflux disease without esophagitis; E03.9 Hypothyroidism, unspecified; Z88.0 Allergy status to penicillin; Z88.8 Allergy status to other drugs, medicaments and biological substances; Z79.890 Hormone replacement therapy; Z79.899 Other long term (current) drug therapy; Z79.01 Long term (current) use of anticoagulants; Z90.49 Acquired absence of other specified parts of digestive tract | CPT/HCPCS: 96361; 96374; 96375; 96376; 99283-25; 99284; J2270; J2765; J7040 ==

== ENCOUNTER 2025-03-07 12:32 | Observation (INO) | payer MEDICARE, OTHER ==
[2025-03-07 13:45] LABS: APPEARANCE,URINE CLEAR (CLEAR); GLUCOSE,URINE NEGATIVE (NEGATIVE); OCCULT BLOOD,URINE NEGATIVE (NEGATIVE)
[2025-03-07 13:47] LABS: BASOPHILS ABSOLUTE AUTO 0.01 K/uL (0.02-0.10); BASOPHILS PERCENT AUTO 0.2 % (0.0-0.5); EOSINOPHILS ABSOLUTE AUTO 0.06 K/uL (0.04-0.40); EOSINOPHILS PERCENT AUTO 1.4 % (1.0-5.0); LYMPHOCYTES ABSOLUTE AUTO 1.97 K/uL (1.50-4.00); LYMPHOCYTES PERCENT AUTO 45.8 % (20.0-40.0); MEAN PLATELET VOLUME 8.6 fL (6.0-10.0); MONOCYTES ABSOLUTE AUTO 0.62 K/uL (0.20-0.80); MONOCYTES PERCENT AUTO 14.4 % (3.0-10.0); NEUTROPHILS ABSOLUTE AUTO 1.64 K/uL (2.00-7.50); NEUTROPHILS PERCENT AUTO 38.2 % (45.0-70.0); PLATELET COUNT,PLT 196 K/uL (150-500); RED BLOOD CELL COUNT 3.01 M/uL (3.80-5.80); RED CELL DISTRIBUTION WIDTH 22.8 % (11.0-16.0); WHITE BLOOD CELL COUNT,WBC 4.3 K/uL (4.0-11.0)
[2025-03-07 13:51] LABS: SQUAMOUS EPITHELIAL CELLS,UR FEW /HPF
[2025-03-07 13:58] LABS: A/G RATIO 0.8 (0.8-2.0); ALANINE AMINOTRANSFERASE,ALT 29.0 U/L (12-78); ASPARTATE AMNIOTRANSFERASE,AST 18.0 U/L (15-37); BILIRUBIN TOTAL 0.1 mg/dL (0.0-1.0); BLOOD UREA NITROGEN,BUN 24.0 mg/dL (8-26); CARBON DIOXIDE,CO2 27.6 mmol/L (21.0-32.0); CHLORIDE,CL 105.0 mmol/L (98-107); CREATININE 0.87 mg/dL (0.55-1.02); EST CRCL DRUG DOSING (CG) 53.11 mL/min; ESTIMATED GFR 70.0 mL/min (>60); GLUCOSE RANDOM 115.0 mg/dL (74-100); POTASSIUM,K 3.8 mmol/L (3.5-5.1); PROTEIN TOTAL,TP 7.0 g/dL (6.4-8.2); SODIUM,NA 141.0 mmol/L (136-145)
[2025-03-07] MEDS: Magnesium Sulfate 2 GM/50 mL 2 GM in Premix Bag 1 BAG IV ONE (14:39)
[2025-03-07] MEDS ORDERED: BUSPIRONE 5 MG PO PRN (17:23)
[2025-03-07] MEDS ORDERED: FLUTICASONE INH PRN (17:23)
[2025-03-07] MEDS ORDERED: Sodium Chloride 0.9% 10 ML Syringe FLUSH PRN (17:23)
[2025-03-07] MEDS ORDERED: SALMETEROL INH PRN (17:23)
[2025-03-07] MEDS ORDERED: ONDANSETRON 8 MG PO PRN (17:23)
[2025-03-07] MEDS ORDERED: ALBUTEROL SULFATE INH PRN (17:23)
[2025-03-07] MEDS ORDERED: BENZONATATE 100 MG PO PRN (17:23)
[2025-03-07] MEDS: Apixaban 5 MG Tab ** OWN MED PO SCH (19:43)
[2025-03-07] MEDS ORDERED: Melatonin 10 MG Cap PO SCH (20:00)
[2025-03-07] MEDS: LIDOCAINE 2% PO PRN (21:37)
[2025-03-07] MEDS: VISCOUS PO PRN (21:37)
[2025-03-07] MEDS ORDERED: VISCOUS PO PRN (22:01)
[2025-03-07] MEDS ORDERED: LIDOCAINE 2% PO PRN (22:01)
[2025-03-08 06:28] LABS: BASOPHILS ABSOLUTE AUTO 0.01 K/uL (0.02-0.10); BASOPHILS PERCENT AUTO 0.3 % (0.0-0.5); EOSINOPHILS ABSOLUTE AUTO 0.06 K/uL (0.04-0.40); EOSINOPHILS PERCENT AUTO 1.8 % (1.0-5.0); LYMPHOCYTES ABSOLUTE AUTO 1.58 K/uL (1.50-4.00); LYMPHOCYTES PERCENT AUTO 47.7 % (20.0-40.0); MEAN PLATELET VOLUME 8.5 fL (6.0-10.0); MONOCYTES ABSOLUTE AUTO 0.51 K/uL (0.20-0.80); MONOCYTES PERCENT AUTO 15.4 % (3.0-10.0); NEUTROPHILS ABSOLUTE AUTO 1.15 K/uL (2.00-7.50); NEUTROPHILS PERCENT AUTO 34.8 % (45.0-70.0); PLATELET COUNT,PLT 174 K/uL (150-500); RED BLOOD CELL COUNT 3.02 M/uL (3.80-5.80); RED CELL DISTRIBUTION WIDTH 23.8 % (11.0-16.0); WHITE BLOOD CELL COUNT,WBC 3.3 K/uL (4.0-11.0)
[2025-03-08 06:37] LABS: A/G RATIO 0.8 (0.8-2.0); ALANINE AMINOTRANSFERASE,ALT 28.0 U/L (12-78); ASPARTATE AMNIOTRANSFERASE,AST 19.0 U/L (15-37); BILIRUBIN TOTAL 0.2 mg/dL (0.0-1.0); BLOOD UREA NITROGEN,BUN 22.0 mg/dL (8-26); CARBON DIOXIDE,CO2 29.0 mmol/L (21.0-32.0); CHLORIDE,CL 108.0 mmol/L (98-107); CREATININE 0.79 mg/dL (0.55-1.02); EST CRCL DRUG DOSING (CG) 58.49 mL/min; ESTIMATED GFR 78.0 mL/min (>60); GLUCOSE RANDOM 89.0 mg/dL (74-100); POTASSIUM,K 4.2 mmol/L (3.5-5.1); PROTEIN TOTAL,TP 6.3 g/dL (6.4-8.2); SODIUM,NA 143.0 mmol/L (136-145)
[2025-03-08] MEDS: LIOTHYRONINE 5 MCG PO SCH (07:13)
[2025-03-08] MEDS: LEVOTHYROXINE SODIUM 150 MCG PO SCH (07:14)
[2025-03-08] MEDS: Magnesium Sulfate 2 GM/50 mL 2 GM in Premix Bag 1 BAG IV ONE (07:15)
[2025-03-08] MEDS ORDERED: LIOTHYRONINE 5 MCG PO SCH (08:00)
[2025-03-08] MEDS: LOSARTAN 50 MG PO SCH (08:12)
[2025-03-08] MEDS: Pantoprazole 40 MG Tab.CR ** OWN MED PO SCH (08:14)
[2025-03-08 08:15] VITALS: BP 134/84
[2025-03-08] MEDS: SERTRALINE 50 MG PO SCH (08:15)
[2025-03-08] MEDS: SERTRALINE 100 MG PO SCH (08:15)
[2025-03-08 08:34] VITALS: PULSE 67
[2025-03-10] MEDS ORDERED: fentaNYL 50 MCG/HR Transdermal Patch TRDERM SCH (09:00)
== END 2025-03-08 10:00 | disposition home or self-care (01) ==
LOC: LB.ED 12:32 → LB.MS 14:25 → UNDOADMOB 15:26 → LB.MS 15:26 → UNDODISOB 03-08 10:00
PROVIDERS: ADMIT Nurse Practitioner Family; ATTEND Nurse Practitioner Family
DX: E83.42 Hypomagnesemia (principal); D64.9 Anemia, unspecified; C56.9 Malignant neoplasm of unspecified ovary; G89.3 Neoplasm related pain (acute) (chronic); M54.9 Dorsalgia, unspecified; R10.84 Generalized abdominal pain; I10 Essential (primary) hypertension; E03.9 Hypothyroidism, unspecified; Z88.0 Allergy status to penicillin; Z88.8 Allergy status to other drugs, medicaments and biological substances; Z79.01 Long term (current) use of anticoagulants; Z79.890 Hormone replacement therapy; Z79.899 Other long term (current) drug therapy
CPT/HCPCS: 36415; 80053; 81001; 83735; 85025; 96365; 96366; 99222; 99238; 99284-25; A9270-GY; G0378; J3475

== ENCOUNTER 2025-03-11 19:08 | Inpatient (IN) | payer MEDICARE, OTHER ==
[2025-03-11] MEDS: Ondansetron 4 MG/2 ML SDV IVPUSH ONE (20:26)
[2025-03-12] MEDS: fentaNYL 50 MCG/HR Transdermal Patch TRDERM SCH (02:44)
[2025-03-12] MEDS: Ondansetron 4 MG Tab.DIS PO PRN (07:43)
[2025-03-13 05:10] VITALS: BP 179/103; PULSE 82
== END 2025-03-13 06:27 | disposition left against medical advice (07) | DRG 948 ==
LOC: LB.ED 19:08 → LB.MS 21:26 → UNDOADMIN 21:26 → LB.MS 21:30
PROVIDERS: ADMIT Surgery; ATTEND Surgery
DX: R10.9 Unspecified abdominal pain (principal); G89.3 Neoplasm related pain (acute) (chronic); C56.9 Malignant neoplasm of unspecified ovary; C78.00 Secondary malignant neoplasm of unspecified lung; C79.51 Secondary malignant neoplasm of bone; J45.909 Unspecified asthma, uncomplicated; Z66 Do not resuscitate; I10 Essential (primary) hypertension; K21.9 Gastro-esophageal reflux disease without esophagitis; K58.9 Irritable bowel syndrome, unspecified; E03.9 Hypothyroidism, unspecified; F41.9 Anxiety disorder, unspecified; Z90.49 Acquired absence of other specified parts of digestive tract; Z98.49 Cataract extraction status, unspecified eye; Z79.01 Long term (current) use of anticoagulants; Z79.890 Hormone replacement therapy; Z79.899 Other long term (current) drug therapy; Z79.52 Long term (current) use of systemic steroids; Z79.891 Long term (current) use of opiate analgesic; Z88.0 Allergy status to penicillin; Z88.8 Allergy status to other drugs, medicaments and biological substances
CPT/HCPCS: 87205; 96374; 96375; 96376; 99284-25; A9270-GY; J2270; J2405; J2765; J7040; Q0162

== ENCOUNTER 2025-03-13 07:52 | Inpatient (IN) | payer MEDICARE, OTHER ==
[2025-03-13 11:01] LABS: A/G RATIO 0.7 (0.8-2.0); ALANINE AMINOTRANSFERASE,ALT 25.0 U/L (12-78); ASPARTATE AMNIOTRANSFERASE,AST 22.0 U/L (15-37); BILIRUBIN TOTAL 0.5 mg/dL (0.0-1.0); BLOOD UREA NITROGEN,BUN 9.0 mg/dL (8-26); CARBON DIOXIDE,CO2 29.8 mmol/L (21.0-32.0); CHLORIDE,CL 103.0 mmol/L (98-107); CREATININE 0.87 mg/dL (0.55-1.02); EST CRCL DRUG DOSING (CG) 53.11 mL/min; ESTIMATED GFR 70.0 mL/min (>60); GLUCOSE RANDOM 111.0 mg/dL (74-100); POTASSIUM,K 4.5 mmol/L (3.5-5.1); PROTEIN TOTAL,TP 7.6 g/dL (6.4-8.2); SODIUM,NA 139.0 mmol/L (136-145)
[2025-03-13] MEDS: Ondansetron 4 MG Tab.DIS PO SCH (11:44)
[2025-03-13] MEDS: fentaNYL 50 MCG/HR Transdermal Patch TRDERM SCH (11:48)
[2025-03-14] MEDS: fentaNYL 25 MCG/HR Transdermal Patch TRDERM SCH (12:00)
[2025-03-14] MEDS: Magnesium Sulfate 2 GM/50 mL 2 GM in Premix Bag 1 BAG IV ONE (12:11)
[2025-03-15] MEDS: LIOTHYRONINE 5 MCG PO SCH (07:38)
[2025-03-15] MEDS ORDERED: BANATROL PLUS PO PRN (09:00)
[2025-03-16] MEDS ORDERED: REMOVE FENTANYL TRDERM SCH (11:00)
[2025-03-17] MEDS: LIOTHYRONINE 5 MCG PO SCH (07:20)
== END 2025-03-17 12:16 | disposition home or self-care (01) | DRG 948 ==
LOC: LB.ED 07:52 → LB.MS 08:19
PROVIDERS: ADMIT Emergency Medicine; ATTEND Emergency Medicine
DX: G89.3 Neoplasm related pain (acute) (chronic) (principal); C56.9 Malignant neoplasm of unspecified ovary; H54.7 Unspecified visual loss; I10 Essential (primary) hypertension; Z51.5 Encounter for palliative care; Z66 Do not resuscitate; J45.909 Unspecified asthma, uncomplicated; K21.9 Gastro-esophageal reflux disease without esophagitis; K58.9 Irritable bowel syndrome, unspecified; M19.90 Unspecified osteoarthritis, unspecified site; F41.9 Anxiety disorder, unspecified; E03.9 Hypothyroidism, unspecified; K59.00 Constipation, unspecified; Z98.49 Cataract extraction status, unspecified eye; Z90.49 Acquired absence of other specified parts of digestive tract; Z88.0 Allergy status to penicillin; Z88.8 Allergy status to other drugs, medicaments and biological substances; Z79.890 Hormone replacement therapy; Z79.899 Other long term (current) drug therapy; Z79.52 Long term (current) use of systemic steroids; Z79.01 Long term (current) use of anticoagulants
CPT/HCPCS: 36415; 80053; 83735; A9270-GY; J3475; Q0162

== ENCOUNTER 2025-06-22 13:43 | Inpatient (IN) | payer MEDICARE, OTHER ==
[2025-06-22] MEDS ORDERED: Sodium Chloride 0.9% 10 ML Syringe FLUSH PRN (14:15)
[2025-06-22] MEDS: Ondansetron 4 MG/2 ML SDV IVPUSH ONE (14:20)
[2025-06-22 14:24] LABS: BASOPHILS ABSOLUTE AUTO 0.09 K/uL (0.02-0.10); BASOPHILS PERCENT AUTO 1.5 % (0.0-0.5); EOSINOPHILS ABSOLUTE AUTO 0.05 K/uL (0.04-0.40); EOSINOPHILS PERCENT AUTO 0.8 % (1.0-5.0); LYMPHOCYTES ABSOLUTE AUTO 1.69 K/uL (1.50-4.00); LYMPHOCYTES PERCENT AUTO 27.5 % (20.0-40.0); MEAN PLATELET VOLUME 9.3 fL (6.0-10.0); MONOCYTES ABSOLUTE AUTO 0.10 K/uL (0.20-0.80); MONOCYTES PERCENT AUTO 1.6 % (3.0-10.0); NEUTROPHILS ABSOLUTE AUTO 4.22 K/uL (2.00-7.50); NEUTROPHILS PERCENT AUTO 68.6 % (45.0-70.0); PLATELET COUNT,PLT 209 K/uL (150-500); RED BLOOD CELL COUNT 5.16 M/uL (3.80-5.80); RED CELL DISTRIBUTION WIDTH 14.7 % (11.0-16.0); WHITE BLOOD CELL COUNT,WBC 6.2 K/uL (4.0-11.0)
[2025-06-22 14:53] LABS: A/G RATIO 0.8 (0.8-2.0); ALANINE AMINOTRANSFERASE,ALT 34.0 U/L (12-78); ASPARTATE AMNIOTRANSFERASE,AST 16.0 U/L (15-37); BILIRUBIN TOTAL 0.6 mg/dL (0.0-1.0); BLOOD UREA NITROGEN,BUN 35.0 mg/dL (8-26); CARBON DIOXIDE,CO2 27.0 mmol/L (21.0-32.0); CHLORIDE,CL 104.0 mmol/L (98-107); CREATININE 1.45 mg/dL (0.55-1.02); EST CRCL DRUG DOSING (CG) 31.86 mL/min; ESTIMATED GFR 38.0 mL/min (>60); GLUCOSE RANDOM 123.0 mg/dL (74-100); PHOSPHORUS 2.7 mg/dL (2.5-4.9); POTASSIUM,K 3.5 mmol/L (3.5-5.1); PROTEIN TOTAL,TP 7.8 g/dL (6.4-8.2); SODIUM,NA 138.0 mmol/L (136-145); TROPONIN I HIGH SENSITIVITY 4.2 pg/ml (<=60.4)
[2025-06-22] MEDS: fentaNYL 100 MCG/2 ML SDV IVPUSH SCH (15:23)
[2025-06-22] MEDS: Magnesium Sulfate 2 GM/50 mL 2 GM in Premix Bag 1 BAG IV ONE (15:24)
[2025-06-22] MEDS: Ondansetron 4 MG/2 ML SDV IV PRN (16:52)
[2025-06-22] MEDS: Lactated Ringers 1,000 ML IV SCH (19:50)
[2025-06-22] MEDS: fentaNYL 25 MCG/HR Transdermal Patch TRDERM SCH (20:15)
[2025-06-23] MEDS ORDERED: Non-Formulary Medication 1 Each (Levothyroxine Sodium [Synthroid] 150 MCG Tablet) PO SCH (08:00)
[2025-06-23] MEDS ORDERED: LIOTHYRONINE 5 MCG PO SCH (08:00)
[2025-06-23] MEDS: Pantoprazole 40 MG Delayed-Release Granules 1 Packet PO SCH (08:17)
[2025-06-23 14:17] LABS: MEAN PLATELET VOLUME 9.3 fL (6.0-10.0); PLATELET COUNT,PLT 159.0 K/uL (150-500); RED BLOOD CELL COUNT 4.26 M/uL (3.80-5.80); RED CELL DISTRIBUTION WIDTH 14.4 % (11.0-16.0); WHITE BLOOD CELL COUNT,WBC 3.7 K/uL (4.0-11.0)
[2025-06-23 14:36] LABS: BLOOD UREA NITROGEN,BUN 16.0 mg/dL (8-26); CARBON DIOXIDE,CO2 28.7 mmol/L (21.0-32.0); CHLORIDE,CL 106.0 mmol/L (98-107); CREATININE 0.94 mg/dL (0.55-1.02); EST CRCL DRUG DOSING (CG) 49.15 mL/min; ESTIMATED GFR 64.0 mL/min (>60); GLUCOSE RANDOM 99.0 mg/dL (74-100); POTASSIUM,K 4.3 mmol/L (3.5-5.1); SODIUM,NA 142.0 mmol/L (136-145)
[2025-06-23 14:38] LABS: APPEARANCE,URINE CLEAR (CLEAR); GLUCOSE,URINE NEGATIVE (NEGATIVE); OCCULT BLOOD,URINE NEGATIVE (NEGATIVE)
[2025-06-23] MEDS: Magnesium Sulfate 2 GM/50 mL 2 GM in Premix Bag 1 BAG IV ONE (16:30)
[2025-06-23] MEDS: Ciprofloxacin in D5W 400 MG in Premix Bag 1 BAG IV SCH (17:31)
[2025-06-23] MEDS: metroNIDAZOLE/Normal Saline 500 MG in Premix Bag 1 BAG IV SCH (19:54)
[2025-06-24 09:43] LABS: MEAN PLATELET VOLUME 9.2 fL (6.0-10.0); PLATELET COUNT,PLT 134.0 K/uL (150-500); RED BLOOD CELL COUNT 4.22 M/uL (3.80-5.80); RED CELL DISTRIBUTION WIDTH 14.2 % (11.0-16.0); WHITE BLOOD CELL COUNT,WBC 3.4 K/uL (4.0-11.0)
[2025-06-24 10:09] LABS: BLOOD UREA NITROGEN,BUN 12.0 mg/dL (8-26); CARBON DIOXIDE,CO2 29.8 mmol/L (21.0-32.0); CHLORIDE,CL 103.0 mmol/L (98-107); CREATININE 0.89 mg/dL (0.55-1.02); EST CRCL DRUG DOSING (CG) 51.91 mL/min; ESTIMATED GFR 68.0 mL/min (>60); GLUCOSE RANDOM 126.0 mg/dL (74-100); POTASSIUM,K 4.1 mmol/L (3.5-5.1); SODIUM,NA 140.0 mmol/L (136-145)
[2025-06-24] MEDS: Magnesium Sulfate 2 GM/50 mL 2 GM in Premix Bag 1 BAG IV SCH (13:56)
[2025-06-27 07:46] VITALS: BP 128/77; PULSE 84
== END 2025-06-27 09:32 | disposition home or self-care (01) | DRG 392 ==
LOC: LB.ED 13:43 → LB.MS 15:58
PROVIDERS: ADMIT Surgery; ATTEND Surgery
DX: R11.2 Nausea with vomiting, unspecified (principal); D84.9 Immunodeficiency, unspecified; R10.84 Generalized abdominal pain; C56.9 Malignant neoplasm of unspecified ovary; T45.1X5A Adverse effect of antineoplastic and immunosuppressive drugs, initial encounter; E86.0 Dehydration; H54.7 Unspecified visual loss; I10 Essential (primary) hypertension; J45.909 Unspecified asthma, uncomplicated; Z79.01 Long term (current) use of anticoagulants; Z79.890 Hormone replacement therapy; K52.9 Noninfective gastroenteritis and colitis, unspecified; G89.3 Neoplasm related pain (acute) (chronic); G47.00 Insomnia, unspecified; K21.9 Gastro-esophageal reflux disease without esophagitis; M19.90 Unspecified osteoarthritis, unspecified site; E03.9 Hypothyroidism, unspecified; Z98.49 Cataract extraction status, unspecified eye; Z90.49 Acquired absence of other specified parts of digestive tract; Z88.0 Allergy status to penicillin; Z88.8 Allergy status to other drugs, medicaments and biological substances; Z79.82 Long term (current) use of aspirin; Z79.899 Other long term (current) drug therapy; Z87.440 Personal history of urinary (tract) infections; Z98.890 Other specified postprocedural states
CPT/HCPCS: 36415; 74176; 80048; 80053; 81003; 83735; 84100; 84484; 85025; 85027; 86140; 93005; 96361; 96365; 96368; 96375; 99223; 99231; 99232; 99238; 99285; 99285-25; A0425; A0428; A9270-GY; J0744; J1171; J1650; J1836; J2405; J2550; J2765; J3010; J3475; J7030; J7120